=== PATIENT | male | born 1980 | race Caucasian/White ===

== ENCOUNTER 2023-02-16 10:35 | Day surgery (SDC) | payer OTHER ==
[~2023-02-16] VITALS: Ht 177.8 cm; Wt 102.0 kg
--- NOTE | ~2023-02-16 | OR ---
[facility] [address], [place] [address] Draft DATE OF OPERATION: 02/16/2023 SURGEON: Maria E Franco MD PREOPERATIVE DIAGNOSIS: Labral tear, left shoulder. POSTOPERATIVE DIAGNOSIS: PROCEDURE PERFORMED: Left shoulder arthroscopy with limited debridement. SALES VICE PRESIDENT: Kizzy Alexandre PA-C. ANESTHESIA: General. BLOOD LOSS: Minimal. BRIEF HISTORY: Pearl is a 42-year-old gentleman for persistent pain in his shoulder. MRI was consistent with posterior labral tear. Radiograph showed minimal arthritis, but there was more on the MRI. Risks and benefits of operative treatment were discussed with him. He elected to proceed. Once consent was obtained, he was taken to the operating room. After adequate anesthesia was placed on the operating room table. All downside pressure points well padded. He was placed in the beach chair position. The shoulder was prepped and draped in a standard sterile fashion. The shoulder was injected with 15 mL of 0.25% Marcaine with epinephrine as was the subacromial space. The standard posterior portal was made. The scope was introduced in the shoulder. 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 There was grade 3 to grade 4 chondromalacia on the posterior half of the glenoid. The anterior labrum and superior labrum were intact. Biceps and biceps anchor were intact. There was a large degenerative tear of the posterior labrum. It was not unstable. Exam under anesthesia did not show any instability of the shoulder. The rotator cuff undersurface was intact. The biceps was good. PATIENT NAME: PEARL STEWART OPERATIVE REPORT DATE OF : 76 REPORT #: [id number] PHYSICIAN: MARIA E FRANCO MD PCP: NO PRIMARY CARE PHYSICIAN REPORT IS CONFIDENTIAL AND NOT TO BE RELEASED WITHOUT AUTHORIZATION [facility] [address] [place], [place] [address] Draft DESCRIPTION OF OPERATION: Standard anterior portal was established and the shaver was used to debride the posterior labral tear, take a lot of the cartilage flaps off the humerus and glenoid. Partial synovectomy was performed due to the significant and thickening of the synovium. The scope was then withdrawn, placed in the subacromial space. There was minimal bursitis in the shoulder. This was removed to allow better visualization of the superior rotator cuff which was found to be intact. His acromion was type 1. The scope was then withdrawn. Portals were closed with 3-0 nylon and dressed with Allevyn and Tegaderm. He was awakened, taken to the recovery room in satisfactory condition. All sponge, needle, and instrument counts were correct. Maria E Franco MD BA/PAPAL /[id number] Copies: ~ PATIENT NAME: PEARL STEWART OPERATIVE REPORT DATE OF : [birth year] REPORT #: [id number] PHYSICIAN: MARIA E FRANCO MD PCP: NO PRIMARY CARE PHYSICIAN REPORT IS CONFIDENTIAL AND NOT TO BE RELEASED WITHOUT AUTHORIZATION
--- NOTE | 2023-02-16 11:21 | NUR ---
LE 1110: KATHIE KELLEY AND RUSSELL IN ROOM PERFORMING LEFT SHOULDER BLOCK. PT TOELRATED WELL. AT BEDSIDE. CALL LIGHT WITHIN REACH.
[2023-02-16] MEDS ORDERED: HYDROCODON-ACE1 EA11 PO (12:10)
[2023-02-16] MEDS ORDERED: CELECOXIB200 MG PO (12:10)
--- NOTE | 2023-02-16 12:15 | NUR ---
02/16/23 1215 Mikaela Xiao 1212- PT ARRIVES TO PACU NONAROUSABLE TO STIMULI WITH AN OPA IN PLACE. RESP EVEN AND UNLABORED. OXYGEN SAT HIGH 90'S ON 6L VIA MASK. PT NEEDING A JAW LIFT TO MAINTAIN A PATENT AIRWAY.
--- NOTE | 2023-02-16 12:58 | NUR ---
PT BACK TO ROOM 4 FROM PACU. REPORT TAKEN FROM KILLIAN WIHTING. PT DENIES PAIN OR NAUSEA. PT HAS 3 LAP SITES ON LEFT SHOULDER, CLEAN DRY AND INTACT. PT SIPPING ICE WATER. CRYO CUFF IN PLACE AT BEDSIDE AND ON PT'S LEFT SHOULDER. PT'S AND PARENTS ARE AT BEDSIDE. CALL LIGHT WITHIN REACH. PT EATING JELLO AT BEDSIDE.
--- NOTE | 2023-02-16 14:47 | NUR ---
LE 1350: PT RESTING IN BED WITH AT BEDSIDE. DENIES PAIN OR NAUSEA. PT STATES HIS LEFT HAND FEELS TINGLY. PT SIPPING ICE WATER AT BEDSIDE. 1400: PT DRESSED IN PERSONAL CLOTHING WITH ASSISTANCE FROM . PT STATES HE USED THE RESTROOM WITH 'S HELP DUE TO RN BEING IN ANOTHER PT ROOM. THIS RN ASKED HOW MUCH PT URINATED. PT'S STATES HE URINATED "A LARGE AMOUNT". PT USING CRYO CUFF AND STATES HE KNOWS HOW TO USE THE MACHINE. 1430: DISCHARGE INSTRUCTIONS REVIEWED WITH PT AND . QUESTIONS AND CONCERNS ADDRESSED. IV DC WNL, TIP INTACT. CRYO CUFF EMPTIED AND PLACED IN BOX FOR TO CARRY. 1445: PT DISCHARGED FROM DAY SURGERY VIA WHEELCHAIR TO PERSONAL AUTOMOBILE TO .
== END 2023-02-16 14:45 | disposition home or self-care (01) ==
LOC: DS 10:35
PROVIDERS: ATTEND Specialist
PROC: 0RBK4ZZ Excision of Left Shoulder Joint, Percutaneous Endoscopic Approach (ICD-10-PCS; principal; 2023-02-16 11:30)
DX: S43.402A Unspecified sprain of left shoulder joint, initial encounter (principal); M19.012 Primary osteoarthritis, left shoulder
CPT/HCPCS: 64415; 76942; J0330; J0690; J1100; J1885; J2001; J2250; J2704; J2795; J7121

== ENCOUNTER 2025-08-28 07:19 | Day surgery (SDC) | payer OTHER ==
[~2025-08-28] VITALS: Ht 177.8 cm; Wt 95.5 kg
[~2025-08-28 07:19] MED LIST: CELECOXIB200 MG PO; HYDROCODON-ACE1 EA11 PO; IBLOOD GLUCOSE TEST STRIP 1 EA TEST VI PRN; LACTATED RINGER'S 1,000 ML IV SCH; LIDOCAINE HCL 1% 5 ML SDV INJ ONE; MIDAZOLAM HCL 5 MG/5 ML VIAL IV PRN; fentaNYL citrate 100 MCG/2 ML VIAL IV PRN
[2025-08-28 07:34] VITALS: BP 126/77
[2025-08-28] MEDS ORDERED: MIDAZOLAM HCL 5 MG/5 ML VIAL ONE (08:22)
[2025-08-28] MEDS ORDERED: fentaNYL citrate 100 MCG/2 ML VIAL ONE (08:22)
--- NOTE | 2025-08-28 09:12 | NUR ---
08/28/25 0912 Rashida Wills 0906: PT ARRIVED TO PACU VIA STRETCHER. PT DROWSY BUT AWAKE AND ASKING QUESTIONS. PT ON 3L NC. PT HAS NO COMPLAINTS OF PAIN OR NAUSEA. 0907: PT TITRATED TO RA AT THIS TIME.
[2025-08-28 09:31] VITALS: BP 119/68
--- NOTE | 2025-08-28 15:58 | OR ---
[facility] [address] [place], [place] [address] Signed DATE OF OPERATION: 08/28/2025 SURGEON: Vlad Mckeon MD PREOPERATIVE DIAGNOSIS: Colon screening. POSTOPERATIVE DIAGNOSIS: Sigmoid diverticulosis. PROCEDURE: Total colonoscopy to cecum. ANESTHESIA: Intravenous sedation, fentanyl 100 mcg and Versed 5 mg total. INDICATION: This 45-year-old white man is a patient of Dr. Loza and referred for screening colonoscopy. He has no symptoms of bleeding, diarrhea or constipation and no family history of colon cancer. He was admitted at this time to undergo screening colonoscopy. He understands the risk of bleeding, infection, perforation. FINDINGS: The prep was good. Complete colonoscopy was undertaken of the cecum with full intubation of the cecum. There was no evidence of polyp or colitis. He did have diverticulosis in the sigmoid which was relatively mild. DESCRIPTION OF PROCEDURE: The patient was brought to the endoscopy suite and placed in lateral decubitus position, given intravenous sedation to the point of slurred speech and nystagmus. Digital rectal examination was normal. An Olympus video colonoscope was passed in the rectum and manipulated throughout the colon noting diverticula of the sigmoid. Scope was ultimately passed to the cecum. Ileocecal valve and appendiceal orifice were normal. Scope was withdrawn from that point and examination throughout showed no sign of abnormality other than diverticula. Retroflexed view was normal. Scope was removed, the patient was taken to the recovery room in good condition. CONCLUDING DIAGNOSIS: Electronically Signed By: VLAD MCKEON MD 08/28/25 1558 PATIENT NAME: PEARL STEWART OPERATIVE REPORT DATE OF : 76 REPORT #: [id number] PHYSICIAN: VLAD MCKEON MD PCP: JEFF LOZA MD REPORT IS CONFIDENTIAL AND NOT TO BE RELEASED WITHOUT AUTHORIZATION [address] [place], [place] [address] Signed Diverticulosis but no evidence of polyps. PLAN: Recommend repeat colonoscopy in 10 years based on current guidelines, colonoscopy can certainly be performed sooner if symptoms should develop. Would recommend high-fiber diet in relation to the diverticulosis as well. He will return to the ongoing care of Dr. Loza. MD KENDELL Martinez/XI /[id number] cc: Dr. Loza Copies: ~ Electronically Signed By: VLAD MCKEON MD 08/28/25 1558 PATIENT NAME: PEARL STEWART OPERATIVE REPORT DATE OF : 76 REPORT #: [id number] PHYSICIAN: VLAD MCKEON MD PCP: JEFF LOZA MD REPORT IS CONFIDENTIAL AND NOT TO BE RELEASED WITHOUT AUTHORIZATION
== END 2025-08-28 09:40 | disposition home or self-care (01) ==
LOC: DS 07:19 → OPS 07:19 → DS 08:30 → OPS 08:30
PROVIDERS: ATTEND Surgery
PROC: 0DJD8ZZ Inspection of Lower Intestinal Tract, Via Natural or Artificial Opening Endoscopic (ICD-10-PCS; principal; 2025-08-28 08:30)
DX: Z12.11 Encounter for screening for malignant neoplasm of colon (principal); K57.30 Diverticulosis of large intestine without perforation or abscess without bleeding; Z98.890 Other specified postprocedural states; Z87.891 Personal history of nicotine dependence
CPT/HCPCS: 99153; G0500; J2250; J3010; J7121